=== PATIENT | female | born 1985 | race Caucasian/White ===

== ENCOUNTER 2018-08-26 14:56 | Inpatient (IN) | payer BC, OTHER ==
[~2018-08-26] VITALS: Ht 152.4 cm; Wt 80.6 kg
[~2018-08-26 14:56] MED LIST: ADDERALL 30 MG30 MG PO; NOHOMEMEDICATIONS
[2018-08-26] MEDS ORDERED: ATIVAN1 MG PO (16:31)
[2018-08-26] MEDS ORDERED: PREDNISONE 10 M10 MG PO (16:34)
[2018-08-26] MEDS ORDERED: XARELTO15 MG PO (16:36)
[2018-08-26 18:48] VITALS: BP 118/75
--- NOTE | 2018-08-26 18:49 | NUR ---
ASSUMED PT CARE PT ADMITED AT 1815 FROM [place]. REPORT WAS RECEIVED FROM NURSE ALVAREZ FROM [place] PRIOR TO PT ADMISSION. PT IS AOX4 PLEASANT. ON RA. VSS. SEE CHART. GAIT BELT IN ROOM, CALL LIGHT AT REACH, DINER OFFERED. ADMISSION PACKAGE GIVEN TO PT. ADMISSION PAPERS SIGNED. PT MADE COMFORTABLE. FAMILY IN ROON. ADMISSION HX AND ASSESSMENT DONE AT [facility]. PT AMBULATE WITH HER WALKER TO RESTROOM WITH GAIT BELT USE AND MINIMAL ASSIST. GAIT IS STABLE. PT CURRENTLY IN ROOM [facility].QUESTIONS ANSWERED. WILL CONTINUE TO MONITOR
[2018-08-26 20:07] VITALS: BP 129/85
--- NOTE | 2018-08-27 02:29 | NUR ---
assumed care at approx 1900 evening 08/26. pt sitting up in recliner at change of shift visiting with family at bedside. pt alert and oriented x4, pleasant and cooperative. pt denies pain. pt wearing left wrist brace. pt up to bathroom with walker and standby assist tolerating well. pt given ativan at hs as ordered for anxiety. pt appears to be sleeping soundly with hourly rounding checks. bed alarm on and call light in reach. will continue to monitor.
[2018-08-27 04:53] LABS: HEMATOCRIT 30.4 % (37.0-47.0); MCH 29.8 pg (26.0-34.0); MCHC 32.9 g/dL (28.0-37.0); MCV 90.6 fL (80.0-100.0); RBC 3.36 mil/uL (4.20-5.00); RDW 18.5 % (10.5-14.5); WBC 11.1 thou/uL (4.0-11.0)
[2018-08-27 05:12] LABS: ALBUMIN 2.9 g/dL (3.4-5.0); CALCIUM 9.2 mg/dL (8.5-10.1); CREATININE 0.8 mg/dL (0.6-1.0); MAGNESIUM 1.9 mg/dL (1.8-2.4); POTASSIUM 3.7 mmol/L (3.5-5.1); TOTAL BILIRUBIN 0.3 mg/dL (<0.1-1.0); TOTAL PROTEIN 6.9 g/dL (6.4-8.2)
[2018-08-27] MEDS ORDERED: XARELTO20 MG PO (06:57)
[2018-08-27 07:15] VITALS: BP 112/72
--- NOTE | 2018-08-27 11:17 | NUR ---
ASSUMED PATIENT CARE AT 0700 A.M., PATIENT LYING IN BED, AWAKE. ASSISTED TO D.R. TABLE FOR BREAKFAST. ATE 100%, TOOK 0900 MEDS WHOLE WITH WATER. AUNT, ESTEVAN, ARRIVED SHORTLY AFTER BREAKFAST. PATIENT TOOK SHOWER AT 0945, MOTHER ARRIVED ABOUT 10:30. NURSE ADMINISTERED FLU VACINE AT 10:00, HAD NOT HAD ONE PREVIOUSLY THIS SEASON. TOLERATED WELL. AUNT AND MOTHER AT BEDSIDE. CONTINUE TO MONITOR.
[2018-08-27 19:00] VITALS: BP 125/78
--- NOTE | 2018-08-28 02:26 | NUR ---
assumed care at approx 1900 evening 08/27. pt sitting up in bed at change of shift resting and visiting with family at bedside. pt stated she had a good day with therapy and thought she made good progress. pt assisted up to bathroom with platform walker. pt appears to be sleeping soundly with rounding checks. bed alarm on and call light in reach. will continue to monitor.
[2018-08-28 07:20] VITALS: BP 116/71
--- NOTE | 2018-08-28 14:52 | NUR ---
ASSUMED CARE AT 0700, SHIFT ASSESSMENT DONE, MEDS GIVEN, VSS. REPORTED BACK PAIN, PRN PAIN MED GIVEN WITH SOME RELIEF. PATIENT WANTED TO WALK AROUND THE UNIT, THIS NURSE WALKED WITH THE PATIENT 3 TIMES. PHYSICAL THERAPHY SAW THE PATIENT TODAY AND RECOMMENDED PATIENT CAN WALK WITH FAMILY MEMBERS ON HER OWN. PATIENT INDICATED SHE DOES NOT WANT THE ADDEROL WHILE SHE IS AT THE HOSPTAL. DR SAXENA WAS NOTIFIED AND ORDER RECEIVED TO DISCONTINUE THE MED. WILL CONTINUE TO ASSESS AND ASSIST WITh ADLs NEEDED.
[2018-08-28 20:21] VITALS: BP 124/74
--- NOTE | 2018-08-29 03:49 | NUR ---
ASSUMED CARE OF PT AT 1915. PT ALERT AND ORIENTED X4, CALM AND COOPERATIVE. UP TO BATHROOM WITH STANDBY ASSIST OF ONE. DENIES PAIN, NAUSEA OR DYPSNEA. HAS APPEARED TO BE SLEEPING WHEN CHECKED ON HOURLY ROUNDS. FALL PRECAUTIONS IN PLACE.
--- NOTE | 2018-08-29 03:55 | NUR ---
ASSUMED CARE OF PT AT 1915. PT ALERT AND ORIENTED X4. VISITED WITH FAMILY DURING THE EVENING, ATIVAN GIVEN X1 AT PT'S REQUEST WHEN FAMILY LEFT. DENIES PAIN, NAUSEA OR DYPSNEA. HAS APPEARED TO BE SLEEPING WHEN CHECKED ON HOURLY ROUNDS. FALL PRECAUTIONS IN PLACE.
[2018-08-29 07:30] VITALS: BP 102/60
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
[2018-08-29 19:15] VITALS: BP 133/89
--- NOTE | 2018-08-29 19:50 | NUR ---
ASSUMED CARE AT 0700, REPORTS SLEPT GOOD LAST NIGHT. PT DIDN'T LIKE TO GET UP EARLIER THIS AM. BUT SHE DID ENCOURAGED AND SHE WAS GLAD THAT STAFF MADE HER GOT UP. OT GAVE PT SHOWER AND SHE PARTICIPATED WELL WITH THERAPY. REASSESSMENT DONE, MEDS GIVEN, VSS. UP WITH ASSIST WITH FLATFORM WC, GB. RIGHT LEG 25% WB FOR RIGHT HIP FX. PHYSICAL THERAPIST REPORTED PT DIDN'T COMPLIANT WELL SINCE PT DOESN'T HAVE PAIN. HAS LEFT SIDE HAND WEAKNESS, ASSISTED WITH OPEN PACKAGES DURING MEALS. HAS A HARD TIME TO OPEN MILK CARTS. CONT B&B. UP TO TOILET WITH ASSIST. SKIN INTACT, ABD INCISION AND LEFT HIP INCISION HEALED, NO DRAINAGE, NO REDNESS, NO SIGNS OF INFECTION.CONTINUE TO REINFORCE PT TO COMPLAINT WITH WT BEARING STATUS. SALLY REED PROVIDED INFORMATION INSTRUCTION ABOUT HIP FX. DR. SCHMITT WAS CALLED AND SHE STARTED PT ON NEUROTIN 300MG BID. GAVE NEUROTIN FOR ANXIETY/DEPRESSION/ ALCOHOL DEPENDENCE.NO ADVERSE REACTION NOTED. GAVE REPORT TO NIGHT NURSE TO CONTINUE TO MONITOR. PT WANTS TO GO HOME, DISCUSSED WITH PT ABOUT IMPORTANT OF REHAB AND WORKING ON HER COPING SKILLS AND HEALTHY LIFESTYLE. PT HAS GOOD FAMILY SUPPORT, MOTHER AND HER CHILDREN AT BEDSIDE. PT REPORTS SHE HAD A GREAT AND PRODUCTIVE DAY. FALL PRECAUTION IN PLACE. CHECKED FREQUENTLY FOR NEEDS AND SAFETY. CALL LIGHT WITHIN REACH.
[2018-08-30 07:00] VITALS: BP 120/70
--- NOTE | 2018-08-30 13:30 | NUR ---
team meeting, recommendations: , dc home health (pt,ot,st,nursing, sw), medication management, finance, paying bills. not recommend to drive or work. follow up with as ordered after dc, pcp dr mendoza, and ortho. after hh, outpt rehab at [facility]. will discuss dme needs next team. will cont to encourage pt to cont rehab. ethol resource provided to pt and family.
--- NOTE | 2018-08-30 16:05 | NUR ---
ASSUMED CARE AT 0700, REPORTS SLEPT GOOD LAST NIGHT. OT GAVE PT SHOWER AND SHE PARTICIPATED WELL WITH THERAPY. REASSESSMENT DONE, MEDS GIVEN, VSS. UP WITH ASSIST WITH FLATFORM WC, GB. RIGHT LEG 25% WB FOR RIGHT HIP FX.DISCUSSED ABOUT COMPLIANT WITH WEIGHT BEAR STATUS. PT HAS BEEN DOING BETTER WITH COMPLIANCE. PT HAS LEFT SIDE HAND WEAKNESS AND PHYSICAL THERAPIST HAS BEEN WORKING ON HER LEFT HAND TODAY. MIN ASSISTED WITH OPEN PACKAGES DURING MEALS. CONT B&B. UP TO TOILET WITH ASSIST. SKIN INTACT, ABD INCISION AND LEFT HIP INCISION HEALED, NO DRAINAGE, NO REDNESS, NO SIGNS OF INFECTION. C/O LEFT EAR FEELS FULL NOTIFIED LISSY AND OBTAINED ORDER FOR EYE DROPS. MORNING MEDS GIVEN, CONTINUE TO BE ON NEUROTIN FOR ANXIETY/DEPRESSION/ ALCOHOL DEPENDENCE.NO ADVERSE REACTION NOTED. SHE SAID NEUROTIN HELPS. CONFERENCE TODAY AND ANTICIPATES DC PT ON NEXT WEEK. DISCUSSED WITH PT ABOUT IMPORTANT OF REHAB AND WORKING ON HER COPING SKILLS AND HEALTHY LIFESTYLE. PT HAS GOOD FAMILY SUPPORT, MOTHER AND HER CHILDREN AT BEDSIDE. PT LIKES TO GO [place] WHEN SHE DONE WITH THERAPY. DISCUSSED WITH DR. PETERSEN AND OBTAINED ORDER TO GO DOWN TO [place] AND [place] ONCE CLEAR WITH STAFF. PT REPORTS SHE HAD A GREAT AND PRODUCTIVE DAY. FALL PRECAUTION IN PLACE. CHECKED FREQUENTLY FOR NEEDS AND SAFETY. CALL LIGHT WITHIN REACH. WILL CONTINUE TO MONITOR.
[2018-08-30 19:17] VITALS: BP 134/90
--- NOTE | 2018-08-31 02:15 | NUR ---
ASSUMED CARE AT APPROX 1900 EVENING 08/30. PT DANGLING ON SIDE OF BED AT CHANGE OF SHIFT VISITING WITH FAMILY AT BEDSIDE. PT IN GOOD MOOD TONIGHT BEFORE FALLING ASLEEP. PT STATED SHE FELT SHE WAS MAKING GOOD PROGRESS WITH HER THERAPY. PT TOOK HS MEDS WITH WATER TOLERATING WELL. PT APPEARS TO BE SLEEPING SOUNDLY WITH HOURLY ROUNDING CHECKS. BED ALARM ON AND CALL LIGHT IN REACH. WILL CONTINUE TO MONITOR.
[2018-08-31 08:00] VITALS: BP 119/83
--- NOTE | 2018-08-31 10:06 | NUR ---
ASSUMED CARES AT 0700. PT AWAKE, A/O*4. DENIES PAIN. HR ELEVATED THIS AM 104. ALL OTHER VITALS REMAIN INTACT. PT HAS MILD EDEMA AROUND RIGHT ANKLE. SKIN REMAINS INTACT. PT SIGNED RELEASE OF INFORMATION FROM [facility], RELEASE SENT AND [facility] CONTACTED. PT UP WITH 1 PERSON SBA, PLATFORM WALKER AND GAITBELT AND TOLERATED WELL. Q1H VISUAL CHECKS. CALL LIGHT WITHIN REACH. FALL PRECAUTIONS IN PLACE
--- NOTE | 2018-08-31 15:24 | NUR ---
Patient participated in community reintegration on 08/31/18 with PHYSICAL THERAPY. Refer to documentation by AMISHA PHYSICAL THERAPIST.
[2018-08-31 19:54] VITALS: BP 124/83
--- NOTE | 2018-09-01 05:12 | NUR ---
Assumed care at 1845. Pt resting in bed. With family at bedside. Ambulated once today to bathroom. Denies pain. Still no IV. Received documents from [facility]. No identified needs at the moment. Call light within reach. Will continue to monitor.
[2018-09-01 08:50] VITALS: BP 121/81
--- NOTE | 2018-09-01 11:47 | NUR ---
ASSUMED CARE OF PT AT 0715. PT IS A&OX4. IS ON ROOM AIR. IS STABLE. DENIES PAIN IN CHEST, KNEE, OR L WRIST. IS UP WITH 1 ASSIST, GB W. IS ONLY ALLOWED TO PLACE 25% OF WT ON IMPARIED LOWER EXT. FALL PRECAUTIONS & HOURLY ROUNDING CONTINUED THIS SHIFT. LABS & VITALS REVIEWED. WILL CONTINUE TO MONITOR.
[2018-09-01 19:28] VITALS: BP 106/60
--- NOTE | 2018-09-01 22:20 | NUR ---
ASKING FOR MEDS APPROPRIATELY AND ACTIVELY LISTENING TO DESCRIPTIONS OF THEIR USES. LORAZEPAM BY REQUEST, PATIENT STATES THAT SHE WAS TAKING LORAZEPAM AT HOME PRIOR TO ADMISSION, ALL THE OTHER MEDS ARE NEW TO HER. UP TO BATHROOM SLOWLY AND CAREFULLY WITH PLATFORM WALKER.
[2018-09-02 07:32] VITALS: BP 124/84
--- NOTE | 2018-09-02 11:02 | NUR ---
ASSUMED CARES AT 0700. PT AWAKE, ALERT AND ORIENTED*4 BUT FORGETFUL. DENIES PAIN. VITALS REMAIN STABLE. WOUND ON CHEST LEFT (SITE OLD CHEST TUBE) CLEANED AND DRESSING CHANGED, CREAM/RED COLORED DRAINAGE NOTED. WOUND ON MID-CHEST HEALED. PT CONTINUES TO BE 25% WEIGHT BEARING ON RLE, SPECIAL BOOT IN PLACE. LEFT HAND BRACE IN PLACE. PT UP WITH 1 PERSON MIN SBA AND TOLERATED WELL. Q1H VISUAL CHECKS. CALL LIGHT WITHIN REACH. FALL PRECAUTIONS IN PLACE
[2018-09-02 20:00] VITALS: BP 129/66
--- NOTE | 2018-09-03 03:32 | NUR ---
ASKING FOR ROUTINE MEDS WELL A DOSE OF LORAZEPAM AT 2100. RESTING WELL OVERNIGHT. AWARE OF NEED TO MINIMIZE WEIGHT BEARING RIGHT LEG. EARDROPS TO LEFT EAR; PATIENT REPORTS THAT THEY HAVE BEEN VERY HELPFUL.
[2018-09-03 07:39] VITALS: BP 120/79
--- NOTE | 2018-09-03 12:47 | NUR ---
ASSUMED CARES AT 0700. PT AWAKE, A/O*4 BUT FORGETFUL, FORGOT TO CALL FOR HER 0900 MED[address] THIS AM PER ST. VITALS REMAINED STABLE. DENIES PAIN. OLD CHEST TUBE SITE ON LEFT LATERAL CHEST CONTINUES TO DRAIN CREAM COLORED DRAINAGE, SITE CLEANED AND DRESSING CHANGED. PT REMAINS ON 25% WEIGHTBEARING ON LEFT LE. BRACE IN LEFT HAND IN PLACE. PT UP WITH SBA, PLATFORM WALKER AND TOLERATED WELL. WENT WITH FAMILY DOWNSTAIRS AFTER LUNCH TO VISIT. Q1H VISUAL CHECKS. CALL LIGHT WITHIN REACH. FALL PRECAUTIONS IN PLACE
[2018-09-03 19:15] VITALS: BP 108/77
--- NOTE | 2018-09-04 05:25 | NUR ---
Assumed care of pt at 1915. Pt alert and oriented x4, calm and cooperative. Up to bathroom, and to ice machine with gait belt, walker, hopping on her right leg. Denies pain, nausea or dypsnea. Pt did call appropriately to ask for HS med. Friend is staying the night at the bedside. Pt has appeared to be sleeping when checked on hourly rounds.
[2018-09-04 08:58] VITALS: BP 124/90
[2018-09-04 19:19] VITALS: BP 128/71
--- NOTE | 2018-09-04 19:19 | NUR ---
ASSUMED CARE OF PT AT 0715. PT IS A&OX4. IS ON ROOM AIR. IS STABLE. DENIES PAIN. IS UP WITH 1 ASSIST, GB, W WITH 25% WT BARRIER ON THE RLE. FALL PRECAUTIONS & HOURLY ROUNDING MAINTAINED. LABS & VITALS REVIEWED. PT HAS CALLED OUT FOR ALL MEDS REQUESTED BY [facility] AT BEDSIDE. WILL CONTINUE TO MONITOR.
--- NOTE | 2018-09-05 02:45 | NUR ---
PATIENT CALLING OUT APPROPRIATELY FOR PRN LORAZEPAM AND SCHEDULED MEDS. FOR NOW SHE HAS ADOPTED STRATEGY OF POSTING SCHEDULE ON THE WALL WHERE SHE CAN SEE IT. APPRECIATES EARDROPS, NO C/O PAIN.
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
[2018-09-05 07:30] VITALS: BP 118/83
--- NOTE | 2018-09-05 13:29 | NUR ---
FAXED REFERRAL TO [facility] SPOKE WITH JAYCOB IN ADM. SHE RECEIVED REFERRAL AND WILL REVIEW. DCP TO FOLLOW.
--- NOTE | 2018-09-05 13:46 | NUR ---
cm visited with pt and mom jacquie rt [facility] referral sent per pt 1st choice. provided resources for alcohol support ([facility], [facility], AA, pathways and safe net packet) " have desi with AA in past. thank you for resources and for family training will need to be before going home on "/pt and jacquie. will cont following as needed for dc nee. [facility] is able to accept and will see pt tomorrow.
--- NOTE | 2018-09-05 19:30 | NUR ---
ASSUMED CARE OF PT AT 0715. REPORTS SLEPT GOOD. PT IS A&OX4. VSS ON RA.DENIES PAIN IN CHEST, KNEE, OR L WRIST. REASESSMENT PER CHART. SKIN INTACT. IS UP WITH 1 ASSIST, Artur MARTIN. IS ONLY ALLOWED TO PLACE 25% OF WT ON IMPARIED LOWER EXT. PT MOVED TO ROOM 501, SINCE SHE GETS BETTER. FALL PRECAUTIONS & HOURLY ROUNDING FOR NEEDS AND SAFETY. MEDS GIVEN ORDERED. PT PARTICIPATED WELL WITH THERAPY TOWARD D/C GOALS. LABS & VITALS REVIEWED. HAS NO QUESTIONS OR CONCERNS. PT CALLED OUT FOR MEDS PASS INSTRUCTED. GAVE REPORT TO NIGHT NURSE TO CONTINUE TO [facility].
[2018-09-05 20:45] VITALS: BP 125/78
--- NOTE | 2018-09-06 00:53 | NUR ---
PT ALERT AND ORIENTED X 4. PT CALLED OUT APPROPRIATELY FOR MEDICATIONS AT BEDTIME. LORAZEPAM GIVEN AT HS PER PT REQUEST. PT DENIES PAIN OR DISCOMFORT. BED ALARM ON FOR SAFETY. PT CHECKED ON HOURLY ROUNDS.
[2018-09-06 08:00] VITALS: BP 119/83
--- NOTE | 2018-09-06 11:47 | NUR ---
Nutrition followup: pt continues to eat very well, 75-100% of meals on regular diet. No new weight since admit. Able to order meals. Low risk.
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
--- NOTE | 2018-09-06 11:52 | NUR ---
ASSUMED CARE OF PT AT 0715. REPORTS SLEPT GOOD IN REGULAR BED. PT IS A&OX4. DENIES PAIN, SOB, N/V. SKIN INTACT. IS UP WITH 1 ASSIST, GB, AND FLATFORM WALKER. PT IS ONLY ALLOWED TO PLACE 25% OF WT ON IMPARIED LOWER EXT. FALL PRECAUTIONS & HOURLY ROUNDING FOR NEEDS AND SAFETY. MEDS GIVEN ORDERED. PT PARTICIPATED WELL WITH THERAPY TOWARD D/C GOALS. LABS & VITALS REVIEWED. HAS NO QUESTIONS OR CONCERNS. PT CALLED OUT FOR MEDS PASS INSTRUCTED. REASSESSMENT PER CHART. PT WANTS TO GO HOME, WILL HAVE TEAM MEETING TODAY. STILL HAS LEFT HAND WEAKNESS AND HER GOAL IS CONTINUE TO WORK ON IT. ENCOURAGED PT TO CONTINUE TO WORK ON LEFT HAND. MIN ASSIST WITH OPEN PACKAGES WITH MEALS. WILL CONTINUE TO MONITOR.
--- NOTE | 2018-09-06 11:52 | PLAN ---
[facility] [place] [address] [place] [address] REHAB UNIT PLAN OF CARE Name: BRITTANY MONTILLA Room #: 501-A ADM IN M.R.#: [id number] Admission: 08/26/18 ������������������ Attend Phys: Sarbjit Ortega MD Discharge: ������������������ Date of : 81 Report #: [id number] THIS REPORT FOR: //name// CC: Sarbjit Mckeon DATE OF SERVICE: 08/27/2018 OVERALL PLAN OF CARE 1. Estimated length of stay is probably at least 10 days to 2 weeks and likely longer as warranted. 2. Medical prognosis is reasonably good. 3. Anticipated interventions includes the interdisciplinary acute inpatient rehabilitation program. 4. Anticipated functional outcomes would be for the patient to become modified independent with basic transfers, mobility and ADLs at her current weightbearing precaution level and utilizing the left upper extremity as best she can to assist with walker usage. 5. Discharge destination would be for her to return back home with her and family. 6. Expected therapy by discipline includes PT, OT and speech 1 hour per day each five days a week throughout the duration of the acute inpatient rehabilitation stay. ��������������������������������������������� <ELECTRONICALLY SIGNED> ���������������������������������������� By: Sarbjit Ortega MD ��������������������������������������������� 09/06/18 1152 0958 [id number] Sarbjit Ortega MD /PMT
--- NOTE | 2018-09-06 12:25 | NUR ---
team meeting, recommendation. cont with dc on , cont 25% wbt lower ext. kay at home ( nursing, pt, ot, st ), follow up with outpt ortho rt wbt, take ct scan results . will need plate form fww.
[2018-09-06 20:10] VITALS: BP 118/84
--- NOTE | 2018-09-07 01:41 | NUR ---
PT ALERT AND ORIENTED X 4. AMB TO BR WITH WALKER AND ASSIST X 1. LEFT SIDED WEAKNESS. PT DENIES PAIN OR DISCOMFORT. LORAZEPAM GIVEN AT HS PER PT REQUEST. PT APPEARS TO BE SLEEPING ON HOURLY ROUNDS.
[2018-09-07 08:00] VITALS: BP 121/78
--- NOTE | 2018-09-07 09:42 | NUR ---
ASSUMED CARES AT 0700. PT AWAKE, ALERT AND ORIENTED*4. DENIES PAIN. VITALS REMAINED STABLE. PT CONTINUES TO HAVE AN OLD LEFT CHEST TUBE SITE, CLEANED AND DRESSING CHANGED. PT REMAINS 25% WEIGHT BEARING ON LLE. LEFT WRIST BRACE REMAINS INTACT. PT ATE ALL HER MEAL. UP WITH SBA, PLATFORM WALKER AND GAITBELT TOLERATED WELL. Q1H VISUAL CHECKS. CALL LIGHT WITHIN REACH. FALL PRECAUTIONS IN PLACE
--- NOTE | 2018-09-07 10:25 | NUR ---
julien spoke with pt mom jacquie provided ortho office # [phone]. " i will call and set up her appointment and will take her home after our family training tomorrow"/jacquie
[2018-09-07 10:27] VITALS: BP 121/78
[2018-09-07] MEDS ORDERED: XARELTO20 MG PO (13:44)
[2018-09-07] MEDS ORDERED: EAR DROPS15 ML OTIC (13:44)
[2018-09-07] MEDS ORDERED: PEPCID20 MG PO (13:44)
[2018-09-07] MEDS ORDERED: NEURONTIN 300300 M1 PO (13:44)
[2018-09-07 19:25] VITALS: BP 127/79
--- NOTE | 2018-09-08 01:10 | NUR ---
CONTINUES WITH [id number], LOOKING FORWARD TO GOING HOME. HAD TO CONSIDER WHICH EAR NEEDED THE EARDROP, REMEMBERED CORRECTLY, BUT IT GOES TO SHOW HOW HELPFUL THE DROPS HAVE BEEN. PLEASANT
[2018-09-08 08:43] VITALS: BP 114/72
--- NOTE | 2018-09-08 09:24 | NUR ---
ASSUMED CARES AT 0700. PT AWAKE, ALERT AND ORIENTED *4 BUT FORGETFUL. DENIES PAIN. VITALS REMAINED STABLE. OLD CHEST-TUBE DRESSING ON LEFT LATERAL CHEST CLEANED AND DRESSING CHANGED, PT TEACHING COMPLETED ON HOW TO CHANGE IT. PT CONTINUES TO HAVE LEFT SIDED WEAKNESS, LLE REMAINS 25% WEIGHT BEARING. PT AMBULATING WITH SBA, PLATFORM WALKER AND TOLERATED WELL. DISCHARGE TEACHING TO BE COMPLETED WITH PT, PT'S SPOUSE AND MOTHER BEFORE DC. Q1H VISUAL CHECKS. CALL LIGHT WITHIN REACH. FALL PRECAUTIONS IN PLACE
[2018-09-08 09:27] VITALS: BP 121/78
[2018-09-08 09:28] VITALS: BP 121/78
--- NOTE | 2018-09-08 09:58 | NUR ---
PT. DISCHARGING TODAY TO HOME WITH HERMES AT HOME FAXED DC ORDERS/SUMMARY SPOKE WITH JESS AND SHE RECEIVED DC ORDERS AND WILL NOTIFY PT. TIME OF VISITS.
[2018-09-08] MEDS ORDERED: ADDERALL 20 MG20 M1 PO (11:33)
[2018-09-08] MEDS ORDERED: LORAZEPAM 0.50.5 M1 PO (11:33)
[2018-09-08] MEDS ORDERED: ADDERALL 30 MG30 MG PO (11:34)
--- NOTE | 2018-09-08 11:35 | NUR ---
cm notified by data input clerk that pt and family want to use [facility] for follow up and have copy of ct report, rt fx and wb status. provider plus delivered plate form walker prior to dc today.
== END 2018-09-08 11:41 | disposition home health service (06) | DRG 56 ==
LOC: ENTRNSPT 09-08 11:28 → EDTRNSPTSTS 09-08 11:31
PROVIDERS: Nurse Practitioner Family; ADMIT Physical Medicine & Rehabilitation
DX: I69.354 Hemiplegia and hemiparesis following cerebral infarction affecting left non-dominant side (principal); I63.9 Cerebral infarction, unspecified; S72.001A Fracture of unspecified part of neck of right femur, initial encounter for closed fracture; S32.401A Unspecified fracture of right acetabulum, initial encounter for closed fracture; I26.99 Other pulmonary embolism without acute cor pulmonale; J93.9 Pneumothorax, unspecified; I31.4 Cardiac tamponade; F41.8 Other specified anxiety disorders; F90.9 Attention-deficit hyperactivity disorder, unspecified type; R41.9 Unspecified symptoms and signs involving cognitive functions and awareness; M21.332 Wrist drop, left wrist; Y90.9 Presence of alcohol in blood, level not specified; S42.002A Fracture of unspecified part of left clavicle, initial encounter for closed fracture; S89.92XA Unspecified injury of left lower leg, initial encounter; F43.21 Adjustment disorder with depressed mood; F10.10 Alcohol abuse, uncomplicated; V43.52XA Car driver injured in collision with other type car in traffic accident, initial encounter; Y93.I9 Activity, other involving external motion; Y92.410 Unspecified street and highway as the place of occurrence of the external cause; Z23 Encounter for immunization
CPT/HCPCS: 10112

== ENCOUNTER 2020-07-25 10:15 | Emergency (ER) | payer BC, OTHER ==
[~2020-07-25] VITALS: Ht 165.1 cm; Wt 81.7 kg
[~2020-07-25 10:15] MED LIST changes: +ADDERALL 20 MG20 M1 PO; +ATIVAN1 MG PO; +EAR DROPS15 ML OTIC; +LORAZEPAM 0.50.5 M1 PO; +NEURONTIN 300300 M1 PO; +PEPCID20 MG PO; +PREDNISONE 10 M10 MG PO; +XARELTO15 MG PO; +XARELTO20 MG PO
[2020-07-25 11:59] VITALS: BP 123/80
== END 2020-07-25 12:00 | disposition home or self-care (01) ==
LOC: ER 10:15
DX: S61.512A Laceration without foreign body of left wrist, initial encounter (principal); Z79.899 Other long term (current) drug therapy; W10.9XXA Fall (on) (from) unspecified stairs and steps, initial encounter; Y93.89 Activity, other specified; Y92.89 Other specified places as the place of occurrence of the external cause; Y99.8 Other external cause status